=== PATIENT | female | born 1975 | race Caucasian/White ===

== ENCOUNTER 2019-07-31 10:00 | Emergency (ER) | payer SELFPAY ==
[2019-07-31 10:33] VITALS: BP 133/82
--- NOTE | 2019-07-31 11:14 | UC ---
Respiratory Complaint HPI - HPI Summary HPI Summary: 44-year-old female with cold symptoms since yesterday to include mostly frequent coughing and wheezing. She is an asthmatic. She stopped smoking 2-1/ 2 years ago. Nonproductive cough. She denies any fever or chills. - History of Current Complaint Chief Complaint: UCGeneralIllness Stated Complaint: ST,COUGH,BACK PAIN Time Seen by Provider: 07/31/19 10:38 Hx Obtained From: Patient Hx Last Menstrual Period: 07/25/19 ?: No Onset/Duration: Gradual Onset Timing: Intermittent Episodes Severity Initially: Mild Severity Currently: Moderate Pain Intensity: 6 Character: Cough: Nonproductive Aggravating Factors: Deep Breaths Alleviating Factors: Nothing Associated Signs And Symptoms: Positive: Wheezing, Nasal Congestion - Allergies/Home Medications Allergies/Adverse Reactions: Allergies Allergy/AdvReac Type Severity Reaction Status Date / Time Penicillins Allergy Unknown unknown Verified 07/31/19 10:28 reaction cephalexin [From Keflex] AdvReac yeast Verified 07/31/19 10:28 Home Medications: Home Medications Albuterol 2.5MG/3ML (0.083%)* [Ventolin 2.5 MG/3 ML NEB.TYLER*] 2.5 mg INH Q4H PRN #30 units 07/31/19 [Rx] Phenylephrine/Dm/Acetaminop/GG [Mucinex Vgju-Qge-Wdgvpddedb Lq] 1 dose PO ONCE 07/31/19 [History Confirmed 07/31/19] predniSONE 10 mg TAB [Deltasone 10 MG TAB*] 10 mg PO DAILY 12 Days #30 tab 07/30 [Rx] PMH/Surg Hx/FS Hx/Imm Hx Previously Healthy: Yes Respiratory History: Asthma - Surgical History Surgical History: Yes Surgery Procedure, Year, and Place: x2 - Family History Known Family History: Positive: Unknown, Non-Contributory - Social History Occupation: Employed Part-time Lives: With Family Alcohol Use: Rare Substance Use Type: None Smoking Status (MU): Former Smoker Type: Cigarettes Amount Used/How Often: 1 PPD Have You Smoked in the Last Year: Yes When Did the Patient Quit Smoking/Using Tobacco: 2018 Review of Systems All Other Systems Reviewed And Are Negative: Yes ENT: Positive: Sore Throat - Sore throat today., Nasal Discharge Respiratory: Positive: Cough - Nonproductive cough, wheezing. Is Patient Immunocompromised?: No Physical Exam Triage Information Reviewed: Yes Appearance: Well-Appearing, No Pain Distress, Well-Nourished Vital Signs: Initial Vital Signs Temp 97.9 F 07/31/19 10:29 Pulse 88 07/31/19 10:29 Resp 19 07/31/19 10:29 BP 133/82 07/31/19 10:29 Pulse Ox 97 07/31/19 10:29 Vital Signs Reviewed: Yes Eyes: Positive: Conjunctiva Clear ENT: Positive: Pharyngeal erythema, TMs normal, Uvula midline Neck: Positive: Supple, Nontender, No Lymphadenopathy Respiratory: Positive: No respiratory distress, No accessory muscle use, Rhonchi , Wheezing - Scattered rhonchi and wheezing throughout all lung bernard. Cardiovascular: Positive: RRR, No Murmur, Pulses Normal, Brisk Capillary Refill Musculoskeletal Exam: Normal Neurological Exam: Normal Psychological Exam: Normal Skin Exam: Normal Respiratory Course/Dx - Course Course Of Treatment: Chest x-ray:Indication: Cough, back pain. 2 views of the chest demonstrate no mediastinal shift. Heart is of normal size and configuration. Lung bernard are clear. IMPRESSION: No active cardiopulmonary disease is noted. The patient was given a DuoNeb treatment with decreased wheezing and increased aeration and finished she felt much better. 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 - Differential Dx/Diagnosis Provider Diagnosis: Bronchitis Discharge ED - Sign-Out/Discharge Documenting (check all that apply): Patient Departure All imaging exams completed and their final reports reviewed: Yes - Discharge Plan Condition: Good Disposition: HOME Prescriptions: Albuterol 2.5MG/3ML (0.083%)* [Ventolin 2.5 MG/3 ML NEB.TYLER*] 2.5 mg INH Q4H PRN #30 units PRN Reason: Wheezing predniSONE 10 mg TAB [Deltasone 10 MG TAB*] 10 mg PO DAILY 12 Days #30 tab Patient Education Materials: Acute Bronchitis (ED) Forms: *Work Release Referrals: Trevor Corona MD [Primary Care Provider] - Additional Instructions: Increase fluids, use her nebulizer every 4 hours as needed for tight cough or wheezing. Take the prednisone with food. Follow-up with your primary care provider in 3 or 4 days if no improvement. If he start running a fever over the weekend or early next week then you are to be rechecked. - Billing Disposition and Condition Condition: GOOD Disposition: Home
[2019-07-31] MEDS ORDERED: Albuterol/Ipratropium NEB.SOL* Albuterol 2.5 MG/Ipratropium 0.5 MG 3 ML INH ONE (11:20)
== END 2019-07-31 12:13 | disposition home or self-care (01) ==
LOC: UCCORT 10:00
DX: J45.909 Unspecified asthma, uncomplicated (principal); M54.9 Dorsalgia, unspecified; Z79.899 Other long term (current) drug therapy; Z87.891 Personal history of nicotine dependence; Z88.0 Allergy status to penicillin; Z88.1 Allergy status to other antibiotic agents
CPT/HCPCS: 71046; 87651; 99212; A9270-GY; G0463